=== PATIENT | male | born 1995 | race Caucasian/White ===

== ENCOUNTER 2016-10-22 15:07 | Emergency (ER) | payer OTHER ==
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
[2016-10-22] MEDS ORDERED: LIDOCAINE 1% INJ-PF (10 MG/ML) 30 ML SDV INJ ONE (16:49)
[2016-10-22] MEDS ORDERED: AZITHROMYCIN 250 MG TABLET PO ONE (16:49)
[2016-10-22] MEDS ORDERED: CEFTRIAXONE INJ 250 MG VIAL IM ONE (16:49)
[2016-10-22] MEDS ORDERED: ONDANSETRON 4 MG TAB.RAPDIS PO ONE (16:50)
[2016-10-22 17:51] VITALS: BP 120/78
[2016-10-22 19:32] LABS: CHLAM PCR DETECTED (NOT DETECT)
== END 2016-10-22 17:54 | disposition home or self-care (01) ==
LOC: ER 15:07
DX: J04.0 Acute laryngitis (principal); L73.9 Follicular disorder, unspecified; J02.9 Acute pharyngitis, unspecified; Z20.2 Contact with and (suspected) exposure to infections with a predominantly sexual mode of transmission
CPT/HCPCS: 99283; 96372; 87491; 87591; S0119; J3490; J0696

== ENCOUNTER 2019-06-02 19:01 | Emergency (ER) | payer OTHER ==
[2019-06-02] MEDS ORDERED: IBUPROFEN 800 MG TABLET PO ONE (19:30)
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
--- NOTE | 2019-06-02 19:56 | RADIOLOGY REPORT (SQ) ---
EXAM DESCRIPTION: CLAVICLE LEFT COMPLETED DATE/TIME: 06/02/2019 7:46 pm REASON FOR STUDY: fall, L clav/shoulder pain COMPARISON: None. NUMBER OF VIEWS: Two views. TECHNIQUE: Frontal and angled images were acquired of the left clavicle. LIMITATIONS: None. FINDINGS: MINERALIZATION: Normal. BONES: No acute fracture or dislocation. No worrisome bone lesions. SOFT TISSUES: No obvious swelling or foreign body. OTHER: No other significant finding. IMPRESSION: NEGATIVE STUDY OF THE LEFT CLAVICLE. NO RADIOGRAPHIC EVIDENCE OF ACUTE INJURY. TECHNICAL DOCUMENTATION: JOB ID: [id number] [employer]- All Rights Reserved Reading location - IP/workstation name: [email or web address] [id number]
--- NOTE | 2019-06-02 19:57 | RADIOLOGY REPORT (SQ) ---
EXAM DESCRIPTION: SHOULDER LEFT 2 OR MORE VIEWS COMPLETED DATE/TIME: 06/02/2019 7:46 pm REASON FOR STUDY: fall, L clav/shoulder pain COMPARISON: None. NUMBER OF VIEWS: Three views. TECHNIQUE: Internal rotation, external rotation, and Y view images acquired of the left shoulder. LIMITATIONS: None. FINDINGS: MINERALIZATION: Normal. BONES: No acute fracture. No worrisome bone lesions. JOINTS: No dislocation. VISUALIZED LUNGS AND RIBS: No pneumothorax. No rib fracture. SOFT TISSUES: No radiopaque foreign body. OTHER: No other significant finding. IMPRESSION: NEGATIVE STUDY OF THE LEFT SHOULDER. NO RADIOGRAPHIC EVIDENCE OF ACUTE INJURY. TECHNICAL DOCUMENTATION: JOB ID: [id number] [employer]- All Rights Reserved Reading location - IP/workstation name: [email or web address]
[2019-06-02] MEDS ORDERED: HYDROCODONE/ACETAMINOPHEN 5-325 MG (6 TAB/ER DISP) PO PRN (20:06)
[2019-06-02 20:47] VITALS: BP 120/75
== END 2019-06-02 20:47 | disposition home or self-care (01) ==
LOC: ER 19:01
DX: S43.402A Unspecified sprain of left shoulder joint, initial encounter (principal); W13.9XXA Fall from, out of or through building, not otherwise specified, initial encounter; Y93.69 Activity, other involving other sports and athletics played as a team or group
CPT/HCPCS: 99283; 73000; 73030; L3650

== ENCOUNTER 2019-06-24 04:01 | Emergency (ER) | payer OTHER ==
[2019-06-24 04:17] VITALS: BP 91/70
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
== END 2019-06-24 05:05 | disposition home or self-care (01) ==
LOC: ER 04:01
DX: S60.511A Abrasion of right hand, initial encounter (principal); W22.09XA Striking against other stationary object, initial encounter
CPT/HCPCS: 99283